=== PATIENT | female | born 1970 | race Caucasian/White ===

== ENCOUNTER 2022-08-13 10:43 | Emergency (ER) | payer BC, SELFPAY ==
[2022-08-13 10:50] VITALS: BP 154/94; PULSE 102; RESP 20; O2SAT 99; BMI 38.0
--- NOTE | 2022-08-13 11:05 | PC.NURSE ---
patient presents from home with L leg pain which she attributes to her sciatica pain. pt initially went to UC and was given prednisone with little relief. pt is aox3, VSS. no other complaints
--- OUTSIDE RECORDS SUMMARY | 2022-08-13 11:06 | XMS_ITS | Encounter Summary ---
:1970 Author Reason for Visit Leg Pain Left leg pain since last august, was pres cribed meds while here and took it and now comes back with another occurance of leg pain. Was prescribed prednisone last year and that helped Assessment and Plan 1. Low back pain co-occurrent with neur algia of left sciatic nerve ? prednisone 20 mg tablet Discussion Note Sciatica is an irritation of one of the sciatic nerves, which come from the spinal cord in the lower back. The sciatic nerves and their branches extend down through the buttock to the foot. Sciatica can develop when an injured disc in the robert k irritates or presses against a spinal nerve root. Its main symptom is pain, numbness, or weakness that is often worse in the leg or foot than in the back. Sciatica often will improve and go away with time. Early treatment usually includes medicines and exercises to relieve pain. How can you care for yourself at home? Take pain medicines exactly as directed. If the doctor gave you a prescription me dicine for pain, take it as prescribed. If you are not taking a prescription demian n medicine, ask your doctor if you can take an [id number] medicine. Use heat or ice to relieve pain. To apply heat, put a warm water bottle, heating pad set on low, or warm cloth on your back. Do not go to sleep with a heating pad on your skin. To use ice, put ice or a cold pack on th e area for 10 to 20 minutes at a time. Put a thin cloth between the ice and your skin. Avoid sitting if possible, unless it fee ls better than standing. Alternate lying down with short walks. I ncrease your walking distance as you are able to without making your symptoms worse. Do not do anything that makes your sympt oms worse. Patient educational handouts: No information available. Plan of Care Reminders Provider Appointments None recorded. ? ? Lab None recorded. ? ? Referral None recorded. ? ? Procedures None recorded. ? ? Surgeries None recorded. ? ? Imaging None recorded. ? ? Medications Name Start Date ? ? dextroamphetamine-amphetamine 20 mg tablet ? TAKE 1 TABLET BY MOUTH EVERY DAY NEEDED dextroamphetamine-amphetamine ER 20 mg 24hr capsule,ex tend release ? TAKE 2 CAPSULES BY MOUTH EVERY MORNING prednisone 20 mg tablet ? Take 2 tablets every day by oral route in the morning for 4 days. venlafaxine ER 150 mg capsule,extended release 24 hr ? TAKE 1 CAPSULE BY MOUTH TWICE A DAY Medications Administered None recorded. Vitals Height Weight BMI Blood Pressure 5 ft 9 in 249 lbs 16 oz 36.9 kg/m2 138/90 mm[Hg] Results Lab Results None recorded. Allergies Code Code System Name Reaction Severity Onset Tetanus and Diphtheria Toxoids Other ? ? Problems Name Status Onset Date Source ? Posttraumatic Stress Disorder Active 08/05/2022 ? Depressive Disorder Active 08/05/2022 ? Attention Deficit Hyperactivity Disorder Active 023 ? Procedures Date Name Performed by ? ? Cholecystectomy Information not avai lable Vaccine List None recorded. Social History Tobacco Smoking Status Never Smoker What is your level of alcohol consumption? None Do you or have you ever used any other forms of tobacco or n icotine? N Do you use any illicit or recreational drugs? N Have you had direct contact, or contact during intimacy, wit h N monkeypox rash, scabs, or body fluids from a person with mon keypox? Have you recently traveled abroad? N Family History Relation Problem Onset Age of Age Notes Father No current problems or (No Information) N/A ( No Notes) disability Mother No current problems or (No Information) N/A ( No Notes) disability Functional Status Unknown. Past Encounters Encounter Date Diagnosis Provider 08/05/2022 Low Back Pain Co-occurrent with Renzochari patel UPPER STITCHER: [address] [facility] Neuralgia of Left Sciatic Nerve [facility], [place] [address], Ph. History of Present Illness ? Lower Back Reported By: Patient HPI: Location: left, posterior. Q uality: aching, burning, constant. Severity: moderate. Duration: 2 days. Timing: acute, morning, daytime, nighttime. Context: cannot identify, rafa fting. Alleviating Factors: rest, NSAIDs. Aggravating Factors: walking , lifting, carrying, bending/squatting, pushing/pulling. Associated Symptoms: no weakness, no numbness, no swelling, no redness, no war mth, no ecchymosis, no catching/locking, no popping/clicking, no bucklin g, no grinding, no instability, no drainage, no fever, no chills, no weig ht loss, no change in bowel/bladder habits, tingling, radiation down leg ; anterior and posterior of left thigh and lower leg. Previous Surgery: none. Prior Imaging: none. Previous Injections: none. Previous P T: none. Work Related: no. Working: no Review of Systems ? [facility] General Adult ROS Reported By: Patient Constitutional: Constitutional: no fever, no night sweats, no significant weight loss, no chills Eyes: Eyes: no irritation, no visi on change ENMT: Ears: no difficulty hearing, no ear pain. Nose: no nose/sinus problems, NO loss of taste/s bal. Mouth/Throat: no sore throat, no mouth ulcers, no oral abnormalities, No hoarseness Cardiovascular: Cardiovascular: no chest demian n, no palpitations, no arm pain on exertion, no shortness of br eath when walking, no shortness of breath when lying down Respiratory: Respiratory: no cough, no wh eezing, no shortness of breath, no coughing up blood, no conges tion in the chest, Not coughing up sputum Gastrointestinal: Gastrointestinal: no abdomin al pain, normal appetite, no nausea, no vomiting, no diar mil, no constipation, not vomiting blood Genitourinary: Genitourinary: no difficulty urinating, no dysuria, no hematuria, no increased freq uency, no flank pain Musculoskeletal: Musculoskeletal: no muscle a ches, no muscle weakness, no arthralgias/joint pain, no s welling in the extremities, back pain Integumentary: Skin: no jaundice, no rashes , no laceration Neurologic: Neurologic: no loss of consc iousness, no weakness, no numbness, no seizures, no di zziness, no headaches Psychiatric: Psych: no depression, no sle ep disturbances, no alcohol abuse Endocrine: Endocrine: no fatigue Hematologic/Lymphatic: Hematologic/Lymphatic no swo llen glands, no bruising Allergic/Immunologic: Allergy/Immunologic: no itch ing, no hives, no frequent sneezing Physical Exam ? [facility] General Adult Exam Both, Brief Back Pain Exam Reported By: Patient Constitutional: General Appearance: healthy- appearing, well-nourished, well-developed Psychiatric: Insight: good judgement. Men faina Status: active and alert, normal mood, normal affect. Orientation: to time, to place, to person, to situation. Memory : recent memory normal, remote memory normal Head: Head: no abnormalities, atra umatic Eyes: Lids and Conjunctivae: non-i njected, no discharge, no pallor. Globe no globe trauma, no re dness. Pupils: PERRLA, brisk. Corneas: grossly intact. EOM : extraocular movement intact. Lens: clear. Sclerae: non-ic teric. Vision: peripheral vision grossly intact, acuity gross ly intact Neck: Neck: supple, non tender, tr achea midline, no step-offs, no crepitus, no nuchal rigidity , no pain with movement Lungs: Respiratory effort: no dyspn ea, nonlabored. Percussion: normal resonance, no dullness. Ausc ultation: breath sounds normal Cardiovascular System: Apical Impulse: not displace d. Heart Auscultation: regular rate and rhythm, normal S1, normal S2, no murmurs, no rubs, no gallops. Neck vessels: no ca rotid bruits. Peripheral pulses normal throughout Abdomen: Bowel Sounds: normoactive. I nspection and Palpation: soft, non-distended, no tenderness , no guarding, no rebound tenderness, no mass, no CVA tenderness. Liver: non-tender, no hepatomegaly. Spleen: non-te nder, no splenomegaly. Hernia: none palpable Musculoskeletal:: Motor Strength and Tone: nor mal motor strength, normal tone. Joints, Bones, and Muscles: normal movement of all extremities, no bony abnorma lities, no contractures, no malalignment, no tenderness. Extremities: no cyanosis, no edema, no varicosities, nega tive Doyle's sign Neurologic: Gait: normal gait. Cranial N erves: grossly intact, no facial droop, eyebrow raise symmetr ical. Sensation: grossly intact. Reflexes: normal. Coordinati on: [id number] intact, no tremor, auto painter equal, strengt h equal all extremities 5/5 Skin: Inspection and palpation: no rash, no lesions, no ulcer, no abnormal nevi, no induration , no nodules, good turgor, no jaundice. Nails: normal, no clubbing Back: Thoracolumbar Appearance: no rmal curvature Lumbar Spine: Inspection no skin abnormali ties. Soft Tissue Palpation on the Left: tenderness of the para spinal region at L 5. Soft Tissue Palpation on the Right: tend erness of the paraspinal region at L 5. Active Range of Motion: flexion limited, extension limited, lateral flexion galarza ited on left, lateral flexion limited on right, pain with motion, pain with rotation
[2022-08-13 11:50] LABS: Appearance Urine Cloudy; Color Urine Yellow; Glucose Urine UA Negative (Negative); Leukocyte Esterase Urine Small (1+) (Negative); Nitrite Urine Negative (Negative); Specific Gravity - Urine 1.025 (1.005-1.025); UMIC TRIGGER UACC YES; Urine Blood Negative (Negative); Urine Ketones Negative (Negative); Urine Protein Trace mg/dL (Neg-Trace)
[2022-08-13 11:56] LABS: UPreg QC Valid YES; Urine Pregnancy NEGATIVE (NEGATIVE)
[2022-08-13] MEDS: Acetaminophen 325 MG TABLET 975 MG PO (12:01)
[2022-08-13] MEDS: Lidocaine 4 % Patch ADH..PATCH 1 PATCH TRANSDERMA (12:01)
[2022-08-13] MEDS: Ketorolac Tromethamine 15 MG/ML VIAL IM (12:01)
[2022-08-13 12:02] LABS: Bacteria Urine 3+ (None Seen); Hyaline Casts Urine 0-2 /LPF (0-2); RBC Urine 0-2 /HPF (0-2); UACC Culture Trigger YES
--- NOTE | 2022-08-13 12:21 | ED.BACK ---
HPI - Back Pain/Injury General Chief Complaint: Extremity Injury, Lower Stated Complaint: L side pain Time Seen by Provider: 08/13/22 11:13 Source: patient Mode of arrival: ambulatory History of Present Illness HPI Narrative: 51-year-old female who presents with ongoing left back pain that wraps around to her left anterior thigh, she denies any fevers or chills, she denies any bowel or bladder dysfunction but states that the pain does make it difficult for her to walk. She denies any mid buttock pain and denies any pain radiating down the back of her leg. She was recently given a short course of prednisone but states that really did not help. Related Data Previous Rx's Medication Instructions Recorded cyclobenzaprine 5 mg tablet 5 mg PO BEDTIME PRN muscle spasm 08/13/22 #4 tabs ketorolac 10 mg tablet 10 mg PO Q6H PRN pain 5 days #20 08/13/22 tabs Allergies Allergy/AdvReac Type Severity Reaction Status Date / Time tetanus toxoid, adsorbed Allergy Intermediate FEVER Verified 08/13/22 10:53 [TETANUS TOXOID, ADSORBED] Tetanus Allergy Unknown Unknown Uncoded 08/13/22 10:53 Review of Systems Review of Systems: Pertinent positives and negatives as stated in HPI [facility] Past Medical History Source: nursing notes reviewed Social History Social History Advance Directives: No Advance Directives Information Provided: No Physical Exam Vital Signs: Vital Signs: Last Vital Signs Pulse 102 H 08/13/22 10:50 Resp 20 08/13/22 10:50 BP 154/94 H 08/13/22 10:50 Pulse Ox 99 08/13/22 10:50 O2 Del Method 08/13/22 10:50 BMI result Body Mass Index 38.0 VITAL SIGNS: Reviewed. GENERAL: Well developed, well nourished, in no acute distress. HEAD: Normocephalic/atraumatic, EYES: PERRLA, EOMI LUNGS: Normal breath sounds. No adventitious sounds or accessory muscle use. SpO2<99> CARDIOVASCULAR: Regular rate and rhythm without noted murmurs ABDOMEN: Soft, non-tender, non-distended with bowel sounds. BACK: no mid vertebral tenderness or step-offs noted, there is tenderness to palpation at the paraspinal approximate L4/L5 and associated muscle spasm. MUSCULOSKELETAL: No tenderness, deformities, or effusions noted on gross inspection. EXTREMITIES: No cyanosis, clubbing or edema. SKIN: Inspection of the skin reveals no rashes NEUROLOGIC: Alert and oriented x 4. Strength and sensation to light touch were grossly intact x 4, DTRs intact. Medications Administered Discontinued Medications Generic Name Dose Route Start Last Admin Trade Name Garoq PRN Reason Stop Dose Admin Acetaminophen 975 mg 08/13/22 11:48 08/13/22 12:01 Acetaminophen 325 Mg Tablet PO 08/13/22 11:49 975 mg ONCE ONE Administration Ketorolac Tromethamine 15 mg 08/13/22 11:48 08/13/22 12:01 Ketorolac Tromethamine 15 Mg/Ml Vial IM 08/13/22 11:49 15 mg ONCE ONE Administration Lidocaine 1 patch 08/13/22 11:48 08/13/22 12:01 Lidocaine 4 % Patch Adh..Patch TRANSDERMA 08/13/22 11:49 1 patch ONCE ONE Administration Protocol Medical Decision Making Medical Decision Making MDM Narrative: 51-year-old female with history and clinical presentation of atraumatic lumbar radiculopathy without concerns for infection or cauda equina. Pain distribution is inconsistent with sciatica, discussed with patient at bedside the difference and will give her combination analgesics as well as a lidocaine patch. I will re-evaluate and likely discharge patient on continuing course of ketorolac and cyclobenzaprine in addition to Tylenol and lidocaine patch. I did review the urinalysis which demonstrates wbc's, bacteria as well as leukocyte esterase, however it appears to be a dirty sample with 11-20 squamous epithelial cells , so will not treat at this time. on re-evaluation patient is feeling better and she will be discharged home in stable condition. Differential Diagnosis Please see the discussion above Lab Data please see the discussion above Labs: Lab Results 08/13/22 08/13/22 Range/Units 11:41 11:41 Urine Color Yellow Urine Appearance Cloudy Urine pH 6.0 (5.0-9.0) Ur Specific Bigler 1.025 (1.005-1.025) Urine Protein Trace (Neg-Trace) mg/dL Urine Glucose (UA) Negative (Negative) mg/dL Urine Ketones Negative (Negative) mg/dL Urine Blood Negative (Negative) Urine Nitrite Negative (Negative) Ur Leukocyte Esterase Small (1+) H (Negative) Urine RBC 0-2 (0-2) /HPF Urine WBC 6-10 H (0-5) /HPF Ur Squamous Epith Cells 11-20 (0-2) /HPF Urine Bacteria 3+ (None Seen) Hyaline Casts 0-2 (0-2) /LPF Urine Test NEGATIVE (NEGATIVE) Discharge Plan Discharge Clinical Impression: Left lumbar radiculopathy, Muscle spasm Patient Disposition: Home, Self-Care Instructions: Lumbar Radiculopathy (ED), Muscle Spasm (ED), Lower Back Exercises (ED) Additional Instructions: 1. Tylenol 1000 mg, orally, every 6 hours as needed for pain control. Do not exceed 4000 mg within 24 hours. 2. Lidocaine patch, apply to your lower back, not your leg as directed on the outside packaging. 3. Please contact your primary care provider once again and request physical therapy referral. Return to the ER for any worsening symptoms. Prescriptions: New cyclobenzaprine 5 mg tablet 5 mg PO BEDTIME PRN (Reason: muscle spasm) Qty: 4 0RF ketorolac 10 mg tablet 10 mg PO Q6H PRN (Reason: pain) 5 Days Qty: 20 0RF Rx Instructions: patient received Toradol in the emergency room. Referrals: Kesha Gunter FNP [Primary Care Provider] -
--- NOTE | 2022-08-13 12:56 | PC.NURSE ---
pt reporting reduction in pain, 5/10.
== END 2022-08-13 13:05 | disposition home or self-care (01) ==
PROVIDERS: Emergency Provider Student in an Organized Health Care Education/Training Program; PCP Nurse Practitioner Family
DX: M54.16 Radiculopathy, lumbar region (principal); M62.838 Other muscle spasm; Z79.899 Other long term (current) drug therapy
CPT/HCPCS: 81001; 81025; 87086; 96372; 99283; 99284; J1885

== ENCOUNTER 2022-12-02 08:12 | Outpatient (REF) | payer BC, SELFPAY | END 2022-12-02 08:13 | disposition home or self-care (01) | LOC: HO.LAB 08:12 | PROVIDERS: PCP Nurse Practitioner Family; Visit Provider Nurse Practitioner Family | DX: Z13.220 Encounter for screening for lipoid disorders (principal); Z13.1 Encounter for screening for diabetes mellitus; Z83.3 Family history of diabetes mellitus; Z13.0 Encounter for screening for diseases of the blood and blood-forming organs and certain disorders involving the immune mechanism; Z13.29 Encounter for screening for other suspected endocrine disorder; Z20.2 Contact with and (suspected) exposure to infections with a predominantly sexual mode of transmission | CPT/HCPCS: 36415; 80053; 80061; 83036; 84443; 85025 ==

== ENCOUNTER 2024-06-26 13:37 | Outpatient (AMB) | payer BC, SELFPAY ==
--- NOTE | 2024-06-26 13:41 | A.OFFPC_ITS ---
Vital Signs 06/26/24 13:43 Height 5 ft 8 in Weight 225 lb 4 oz BMI 34.2 BP 120/78 Blood Pressure Location Lt brachial Position Sitting Pulse 80 Pulse Source Pulse Oximeter Temp 97.3 F Temp Source Skin Pulse Oximetry (%) 99 Oxygen Delivery Method Room Air Intake Visit Reasons: AGUILA Kesha/ establish care Intake Note: Patient is here today for AGUILA from A.O. Complaint of possible menopause. Pt decline flu shot today. Research Quality Assurance Specialist Required: No Surveillance Operator: Not Required per policy Accompanied by: Self / Same As Patient Allergies tetanus toxoid, adsorbed [TETANUS TOXOID, ADSORBED] Allergy (Intermediate, Verified 06/26/24 14:23) FEVER Tetanus Allergy (Unknown, Uncoded 06/26/24 14:23) Unknown Medication List - Last Reconciled 06/26/24 by Michelle Mi PA-C dextroamphetamine-amphetamine 20 mg 1 tab PO DAILY PRN venlafaxine ER 300 mg PO DAILY Tobacco use date assessed: 06/26/24 Dental Screening Dental Screen Date: 06/26/24 Did you have a dental visit in the last 12 months?: Yes Did you have a dental problem in the last 6 months where you did not have access to dental care?: No Was dental information given to patient?: Patient has dentist HPI AGUILA Kesha/ establish care HPI Details 53-year-old female with past medical his tory of depression, anxiety, PTSD, hyperlipidemia last seen by nurse practitioner 09/2022 coming in for transfer of care. Patient tells us today last year she was having spotting for the entire year without a normal menstrual cycle. Four weeks ago she began having cramps and vaginal bleeding consistent with her normal menses. She continues to have this vaginal cramping and bleeding without interruption. She sees Estefany Parekh as her psych provider and she will see her every 3-4 months. She is also interested in the Wegovy injection for weight loss. [facility] Surgical History (Updated 06/26/24 @ 14:25 by Michelle Mi PA-C) H/O tubal ligation History of cholecystectomy Family History (Updated 06/26/24 @ 13:47 by MARCOS Dennis) Mother Diabetes Other Mental health disorder Social History Household Members: Spouse Housing: House Alcohol intake: never Patient Tobacco Use Status: Never used Tobacco Years Smoked: e-Cigarette/Vaping Use: Never Used Second Hand Smoke Exposure: No Substance Use Type: Marijuana service: No Current occupational status: employed Cognitive needs: No Hearing needs: No Vision needs: No Questionnaire PHQ-9 Over the last 2 weeks, how often have you been bothered by any of the following problems? 1. Little interest or pleasure in doing things: not at all 2. Feeling down, depressed, or hopeless: more than half the days (Currently on medication) 3. Trouble falling or staying asleep, or sleeping too much: not at all 4. Feeling tired or having little energy: not at all 5. Poor appetite or overeating: not at all 6. Feeling bad about yourself - or that you are a failure or have let yourself or your family down: not at all 7. Trouble concentrating on things, such as reading the newspaper or watching television: not at all 8. Moving or speaking so slowly that other people could have noticed. Or the opposite - being so fidgety or restless that you have been moving around a lot more than usual: not at all 9. Thoughts that you would be better off or of hurting yourself in some way: not at all Total score: 2 Depression Screening Interpretation: Negative Depression Screening Done: Yes Source: Developed by Drs. Abhi Marshall, Xiomara Perry, Damien Orourke and colleagues, with an educational tess from [employer]. Thrive Questionnaire Date Thrive assessed: 06/26/24 I am a: Patient What is your living situation today?: I have a steady place to live Within the past 12 months, did the food you bought not last and you didn't have the money to get more?: Never true Within the past 12 months, did you worry whether your food would run out before you got money to buy more?: Never true Do you have trouble paying for medicines?: No Do you have trouble getting transportation to medical appointments?: No Do you have trouble paying your heating and electricity bill?: No Do you have trouble taking care of your child, family member or friend?: No Do you have trouble with day-to-day activities such as bathing, preparing meals, shopping, managing finances, etc.?: No Are you currently unemployed and looking for a job?: No Are you interested in more education?: No Please select the resources that you would like help with: None Currently or been in a relationship where the following occur: No concerns reported THRIVE Score: 0 AUDIT C Alcohol Use Questionnaire (AUDIT-C) 1. How often do you have a drink containing alcohol?: Monthly or less 2. How many drinks containing alcohol do you have on a typical day when you are drinking?: 1 or 2 3. How often do you have six or more drinks on one occasion?: Never Total Score: 1 NOEL-7 AMB Questionnaire NOEL-7 Date NOEL - 7 assessed: 06/26/24 Feeling nervous, anxious, or on edge: 2 = More than half the days (currently on medication) Not being able to stop or control worryin = Not at all Worrying too much about different things: 0 = Not at all Trouble relaxin = Not at all Being so restless that it is hard to sit still: 0 = Not at all Becoming easily annoyed or irritable: 0 = Not at all Feeling afraid as if something awful might happen: 0 = Not at all Total NOEL-7 score (0-4 normal; 5-9 mild; 10-14 moderate; 15-21 severe): 2 Source: Developed by Drs. Abhi Marshall, Xiomara Perry, Damien Orourke and colleagues, with an educational tess from [employer]. Review of Systems Const Denies body aches, Denies chills, Denies fever(s), Denies headache(s) and Denies poor appetite Eyes Reports no additional complaints ENT Denies dizziness and Denies headache(s) Card Denies chest pain, Denies syncope, Denies edema, Denies irregular heart rhythm, Denies lightheadedness and Denies dyspnea Resp Denies cough and Denies dyspnea GI Denies abdominal pain, Denies constipation, Denies diarrhea, Denies nausea and Denies vomiting Reports as per HPI Musc Details: Left knee pain and low back pain Denies abnormal gait Skin/Breast Reports system reviewed and no additional complaints, except as documented Neuro Denies abnormal gait, Denies dizziness, Denies syncope and Denies headache(s) Psych Reports no additional complaints Physical exam (Primary Care) Vital Signs: Last Vital Signs Temp 97.3 F 06/26/24 13:43 Pulse 80 06/26/24 13:43 BP 120/78 06/26/24 13:43 Pulse Ox 99 06/26/24 13:43 Oxygen Delivery Method Room Air 06/26/24 13:43 BMI result Body Mass Index 34.2 Tobacco/Smoking Status: Tobacco use Status Tobacco use date assessed 06/26/24 06/26/24 13:49 Patient Tobacco Use Status Never used Tobacco 06/26/24 13:49 e-Cigarette/Vaping Use Never Used 06/26/24 13:49 PHQ-9: PHQ-9 Score PHQ-9: Total score 2 06/26/24 13:49 Depression Screening Interpretation: Negative Thrive Assessment: Date of Thrive Assessment Date Thrive assessed 06/26/24 06/26/24 13:49 Currently or been in a relationship where the following occur: No concerns reported Const General: cooperative, healthy appearing, comfortable and no acute distress Orientation/consciousness: patient oriented x3 HENMT Head: Yes normocephalic Ears: hearing grossly normal bilaterally General nose exam: Normal external nose present Eyes General: appearance normal, both eyes and all related structures Conjunctivae: conjunctivae normal Neck Neck: Yes full ROM and Yes no lymphadenopathy Resp Effort & Inspection: normal respiratory effort Auscultation: clear to auscultation bilaterally, no crackles, no rales, no rhonchi and no wheezes Cardio Rate: regular rate Rhythm: regular rhythm Skin General skin exam: no rashes or lesions noted Neuro General: patient oriented x3 Gait exam (Neuro): Normal gait present Extrem General: Yes normal to inspection, Yes full ROM and No edema Psych Affect: normal affect Attitude: cooperative Insight: Good insight present (Psych) Judgement: Good judgement present (Psych) Coding Level of Care Code Est Pt Level 4 (55508) Diagnoses Hyperlipidemia E78.5 Anxiety F41.9 Depression F32.A PTSD (post-traumatic stress disorder) F43.10 ADHD F90.9 Heavy menstrual bleeding N92.0 Obesity E66.9 Assessment & Plan Assessment & Plan (1) Hyperlipidemia: Code(s): E78.5 - Hyperlipidemia, unspecified Category: Medical Plan: Avoid foods that are high in cholesterol such as red meat, fried foods, eggs and baked goods. Triglyceride goal of less than 150 and LDL goal of less than 130. Ordered for updated blood work (2) Anxiety: Comment: Follows with Estefany Parekh Q 3-4 months Code(s): F41.9 - Anxiety disorder, unspecified Category: Medical Plan: Follows with a psychiatrist and currently on venlafaxine feels her symptoms are well managed at this time. (3) Depression: Comment: Follows with Estefany Parekh Q 3-4 months Code(s): F32.A - Depression, unspecified Category: Medical Plan: Follows with a psychiatrist and currently on venlafaxine feels her symptoms are well managed at this time. (4) PTSD (post-traumatic stress disorder): Code(s): F43.10 - Post-traumatic stress disorder, unspecified Category: Medical Plan: Follows with a psychiatrist for this concern. (5) ADHD: Code(s): F90.9 - Attention-deficit hyperactivity disorder, unspecified type Category: Medical Plan: Follows with a psychiatrist and is currently on Adderall for this concern and feels her symptoms are well managed at this time. (6) Heavy menstrual bleeding: Code(s): N92.0 - Excessive and frequent menstruation with regular cycle Category: Medical Plan: Patient complaining of 4 weeks of heavy menses. She has not had this in the past but does have a history of irregular menses with spotting last year. Patient has not officially in menopause but does have menopausal symptoms such as hot flashes and mood swings. Referral placed to gynecology for further evaluation. (7) Obesity: Code(s): E66.9 - Obesity, unspecified Category: Medical Plan: Healthy diet and regular exercise is encouraged. Patient is interested in the Wegovy injection however after reviewing side effects of this medication patient would like to hold off on trying this medication until her symptoms the menstrual bleeding have resolved. Plan Ordered for updated blood work and we will have patient follow up in 1 month. This note was constructed using voice recognition software. While every effort has been made to ensure accuracy and conference services coordinator, still areas may have been included sometimes these areas may affect the content or meeting of the given symptoms. Total time spent caring for the patient today was 30 minutes. This includes time spent before the visit reviewing the chart, time spent during the visit, and time spent after the visit and documentation. Orders: Orders Comprehensive Met. Panel Today Z00.00 - Encounter for general adult medical examination without abnormal findings TSH reflex Free T4 Today Z00.00 - Encounter for general adult medical examination without abnormal findings IRON PROFILE Today N92.0 - Excessive and frequent menstruation with regular cycle Lipid Panel Today E78.00 - Pure hypercholesterolemia, unspecified MM tomosynthesis screening BI Today Z12.31 - Encounter for screening mammogram for malignant neoplasm of breast Complete Blood Count Auto Diff Today Z00.00 - Encounter for general adult medical examination without abnormal findings Free T4 (Free Thyroxine) Today Z00.00 - Encounter for general adult medical examination without abnormal findings Vitamin B12 and Folate Today Z00.00 - Encounter for general adult medical examination without abnormal findings Vitamin D 25-OH Total Today Z00.00 - Encounter for general adult medical examination without abnormal findings Hemoglobin A1c Today E78.5 - Hyperlipidemia, unspecified UA CC w/rflx Micro + Cult Today R35.89 - Other polyuria Referrals DYE RANGE OPERATOR CLOTH Referral N92.0 - Excessive and frequent menstruation with regular cycle
[2024-06-26 13:43] VITALS: BP 120/78; PULSE 80; TEMP 36.3; O2SAT 99; BMI 34.2
== END 2024-06-26 14:55 | disposition home or self-care (01) ==
PROVIDERS: PCP Nurse Practitioner Family
DX: E78.5 Hyperlipidemia, unspecified (principal); F41.9 Anxiety disorder, unspecified; E66.9 Obesity, unspecified; Z68.34 Body mass index [BMI] 34.0-34.9, adult; F32.A Depression, unspecified; F43.10 Post-traumatic stress disorder, unspecified; F90.9 Attention-deficit hyperactivity disorder, unspecified type; N92.0 Excessive and frequent menstruation with regular cycle

== ENCOUNTER 2024-08-11 11:07 | Outpatient (REF) | payer BC, SELFPAY ==
[2024-08-11 11:24] LABS: MANUAL DIFF FLAG NO
[2024-08-11 11:41] LABS: Basophils Absolute Auto 0.1 X10*3/uL (0.0-0.2); Basophils Percent Auto 0.5 % (0-2); Eosinophils Absolute Auto 0.2 X10*3/uL (0.0-0.4); Eosinophils Percent Auto 1.5 % (0-4); Hematocrit 40.5 % (37.0-47.0); Hemoglobin 13.2 g/dl (12.0-16.0); Imm Gran Abs Auto 0.05 X10*3/uL (0.00-0.03); Imm Gran Pct Auto 0.4 % (0.0-0.4); Lymphocytes Absolute Auto 4.1 X10*3/uL (1.2-4.9); Lymphocytes Percent Auto 30.1 % (20-40); Mean Corpuscular HGB Conc 32.6 g/dl (31.0-35.0); Mean Corpuscular Volume 79.9 fL (80.0-98.0); Mean Platelet Volume 9.4 fL (9.4-12.3); Monocytes Absolute Auto 0.7 X10*3/uL (0.1-1.2); Monocytes Percent Auto 5.4 % (2-11); Neutrophils Absolute Auto 8.5 x10*3/uL (2.0-8.3); Neutrophils Percent Auto 62.1 % (45-73); Platelet Count 430 X10*3/uL (160-400); Red Blood Count 5.07 X10*6/uL (4.20-5.50); Red Cell Distribution Width 14.1 % (11.0-16.0); White Blood Count 13.7 X10*3/uL (4.8-10.8)
[2024-08-11 11:53] LABS: Estimated Average Glucose 105 mg/dL; Hemoglobin A1c % 5.3 % (<6.0)
[2024-08-11 12:14] LABS: Appearance Urine Cloudy; Color Urine Yellow; Glucose Urine UA Negative (Negative); Leukocyte Esterase Urine Negative (Negative); Nitrite Urine Negative (Negative); PH 5.5 (5.0-9.0); Specific Gravity - Urine >= 1.030 (1.005-1.025); Urine Blood Negative (Negative); Urine Ketones Negative (Negative); Urine Protein Negative (Neg-Trace)
--- OUTSIDE RECORDS SUMMARY | 2024-08-11 12:40 | XMS_ITS | Data Portability ---
Author Organization [facility] [address] Address [address] [place] [address] Assessment No assessment recorded. Plan of Treatment Reminders Order Date Submit Date Provider Last Modified By Organization Details Last Modified Time Details Appointments None recorded. Lab None recorded. Referral None recorded. Procedures None recorded. Surgeries None recorded. Imaging None recorded. Medication Orders prednisone 20 mg tablet 2022 023 [facility] #[id number], [address] [place], [address], 12:21:04 Patient TargetsNo targets recorded. Patient Instructions Encounter Date Encounter Id Patient Instructions Last Modified By Organization Details Last Modified Time 08/05/2022 [id number] Sciatica is an irritation of one of the sciatic nerves, which come from the spinal cord in the lower back. The sciatic nerves and their branches extend down through the buttock to the foot. Sciatica can develop when an injured disc in the back irritates or presses against a spinal nerve [...] If the doctor gave you a prescription medicine for pain, take it as prescribed. If you are not taking a prescription pain medicine, ask your doctor if you can take an zyhb-sxl-deocexh medicine. Use heat or ice to relieve pain. To apply heat, put a warm water bottle, heating pad set on low, or warm cloth on your back. Do not go to sleep with a heating pad on your skin. To use ice, put ice or a cold pack on the area for 10 to 20 minutes at a time. Put a thin cloth between the ice and your skin. Avoid sitting if possible, unless it feels better than standing. Alternate lying down with short walks. Increase your walking distance as you are able to without making your symptoms worse. Do not do anything that makes your symptoms worse. [email or web address] Not available 08/05/2022 12:20:48 Reason for Referral None Reported. Problems Name Problem SNOMED Code Status Onset Date Resolution Date Notes Provider Name and Address Organization Details Recorded Time Attention deficit hyperactivity disorder 562583001 Active 2022 Yessica Chele null, PA - [facility] 11:17:38 Depressive disorder 50919536 Active 2022 Yessica Chele null, PA - [facility] 11:17:52 Posttraumatic stress disorder 16177132 Active 2022 Yessica Chele null, PA - [facility] 11:17:56 Problem Notes None recorded. Procedures Surgical History Date Name Laterality Status Provider Name and Address Organization Details Recorded Time cholecystectomy completed Yessica Chele P A - [facility] 08/05/2022 11:18:14 Imaging Results None recorded. Procedure Notes None recorded. Medical Equipment None Reported. Allergies Allergen ID Allergen Name Allergen Category Reaction Reaction Severity Criticality Documentation Date Start Date Code Code System Note Provider Name and Address Organization Details Recorded Time 504800 tetanus and diphtheri a toxoids Not available other Not available low 08/05/2022 59190 UNK Yessica Quebradillas null, PA - [facility] 11:16:49 Medications Name Sig Start Date Stop Date Status Note LastModified by Organization Details LastModified Time prednisone 20 mg tablet Take 2 tablets every day by oral route in the morning for 4 days. 2022 active Not Available Not Available Not Avai lable venlafaxine ER 150 mg capsule,exten ded release 24 hr TAKE 1 CAPSULE BY MOUTH TWICE A DAY active Not Available Not Available No t Available dextroampheta mine-amphetam ine ER 20 mg 24hr capsule,exten d release TAKE 2 CAPSULES BY MOUTH EVERY MORNING active Not Available Not Available No t Available dextroampheta mine-amphetam ine 20 mg tablet TAKE 1 TABLET BY MOUTH EVERY DAY NEEDED active Not Available Not Available No t Available Vitals Date Recorded Body height Body mass index (BMI) Body weight Pain severity - 0-10 verbal numeric rating [Score] - Reported Body temperature Respiratory rate Heart rate Oxygen saturation Oxygen saturation in Arterial blood by Pulse oximetry Systolic blood pressure Diastolic blood pressure Provider Name and Address Organization Details Last Updated DateTime 175.26 cm 36.9 kg/m2 847856. 09 g 9 98.2 [degF] 20 /min 92 /min 96 % 96 % 138 mm[Hg] 90 mm[Hg] Yessica Elaine PA [facility] 11:19:55 Social History Question Answer Notes LastModified by Organizat ion Details LastModified Time Tobacco Smoking Status Never Smoker Yessica sheppard PA - [facility] 08/05/2022 11:18:05 What Is Your Level Of Alcohol Consumption? None Information not available 08/05/2022 Have You Had Direct Contact, Or Contact During Intimacy, With Monkeypox Rash, Scabs, Or Body Fluids From A Person With Monkeypox? No Information not available 08/05/2022 Do You Use Any Illicit Or Recreational Drugs? No Information not available 08/05/2022 Have You Recently Traveled Abroad? No Information not available 08/05/2022 Do You Or Have You Ever Used Any Other Forms Of Tobacco Or Nicotine? No Information not available 08/05/2022 Sex: Unknown Functional Status None recorded. Mental Status None recorded. Family History Relationship Description Onset Age of this Age Resolved Age Notes LastModified by Organization Details LastModified Time Father No current problems or disability Not available 08/05 11:17:58 Mother No current problems or disability Not available 08/05 11:17:58 Medical History No medical history recorded. Gynecological HistoryNo gynecological history recorded. Obstetrics History GPAL:G 0 P 0 0 0 0 Past Encounters Encounter ID Performer Location Encounter Start Date Encounter Closed Date Diagnosis/Indication Diagnosis SNOMED-CT Code Diagnosis ICD10 Code Diagnosis Note [id number] [address] [address] 08/09/2020 10:55:55 08/09/2020 12:39:57 [id number] [address] [facility] [place] [address] 12/30/2018 14:16:40 12/30/2018 14:59:09 [id number] [address] [facility] [place] [address] 02/07/2017 18:08:33 02/07/2017 18:41:29 [id number] [address] [facility] [place] [address] 07/31/2015 14:18:05 07/31/2015 14:56:05 [id number] Renzo Cordero NP [address] [facility] [place] [address] 08/05/2022 10:52:54 08/05/2022 12:22:36 Low back pain co-occurrent with neuralgia of left sciatic nerve [id number] M54.42 Health Concerns Section Related Observation LastModified by Organization Detai ls LastModified Time None Recorded Concern Status LastModified by Organization Details LastModified Time None Recorded Advance Directives Directive None Recorded Payers Encounter Date Sequence Insurance Name Policy Number Policy Macedo Covered Member ID Macedo Member ID Guarantor Name 07/31/2015 1 [place] [id number] Hitesh [place] [id number] Trang [place] 02/07/2017 1 [place] [id number] Hitesh [place] [id number] Trang [place] 12/30/2018 1 [place] [id number] Hitesh [place] [id number] Trang [place] 08/09/2020 1 [place] [id number] Hitesh Scooby [id number] Trang [place] 08/05/2022 1 [place] [id number] Hitesh Almod[place]ar [id number] Trang Almod[place]ar Notes Date Note Type Note Provider Name and Address Organization Details Recorded Time 08/05/2022 text/html Lower BackReport ed bypatient.Location :left; posterior Quality:aching; burning; constant Severity:moderate Duration:2 days Timing:acute; morning; daytime; nighttime Context:cannot identify; lifting Alleviating Factors:rest; NSAIDs Aggravating Factors:walking; lifting; carrying; bending/squatting; pushing/pulling Associated Symptoms:no weakness; no numbness; no swelling; no redness; no warmth; no ecchymosis; no catching/locking; no popping/clicking; no buckling; no grinding; no instability; no drainage; no fever; no chills; no weight loss; no change in bowel/bladder habits;tingling;ra diation down leg; anterior and posterior of left thigh and lower leg. Previous Surgery:none Prior Imaging:none Previous Injections:none Previous PT:none Work Related:no Working:no Renzo Cordero NP [address] [place], [address], PA - [facility] 08/06/2022 07:46:38 OBGyn Episode No OBEpisode recorded.
[2024-08-11 12:58] LABS: Alanine Aminotransferase 12 U/L (0-31); Albumin Level 4.2 g/dL (3.5-5.0); Alkaline Phosphatase 85 U/L (39-117); Anion Gap 12 (12-20); Aspartate Amino Transferase 14 U/L (5-31); Bilirubin Total 0.3 mg/dL (0.0-1.0); Blood Urea Nitrogen 21 mg/dL (9-16); Calcium 9.3 mg/dL (8.4-10.2); Carbon Dioxide 29 mmol/L (22-29); Chloride 106 mmol/L (96-108); Cholesterol 317 mg/dL (<200); Estimated Glomerular Filt Rate > 60; Glucose Random 76 mg/dL (60-115); HDL Cholesterol 49 mg/dL (>40); Iron 39 mcg/dL (30-160); LDL Cholesterol Calculated 239 mg/dL (<100); Percent Iron Saturation 16 % (15-50); Potassium 3.3 mmol/L (3.3-5.1); Sodium 144 mmol/L (135-145); Total Iron Binding Capacity 242 mcg/dL (228-428); Total Protein 8.2 g/dL (6.5-8.0); Triglycerides 149 mg/dL (<150); Unsaturated Iron Binding 203 ug/dL
[2024-08-11 13:00] LABS: TSH reflex Free T4 1.37 uIU/mL (0.32-4.0)
[2024-08-11 13:10] LABS: Folate 5.6 ng/mL (> or = 4.0); Vitamin B12 417 pg/mL (200-900)
== END 2024-08-11 11:08 | disposition home or self-care (01) ==
LOC: HO.LAB 11:07
DX: Z00.00 Encounter for general adult medical examination without abnormal findings (principal); N92.0 Excessive and frequent menstruation with regular cycle; E78.00 Pure hypercholesterolemia, unspecified; E78.5 Hyperlipidemia, unspecified; R35.89 Other polyuria; Z13.1 Encounter for screening for diabetes mellitus
CPT/HCPCS: 36415; 80053; 80061; 81003; 82306; 82607; 82746; 83036; 83540; 84439; 84443; 85025

== ENCOUNTER 2024-08-26 08:29 | Outpatient (AMB) | payer BC, SELFPAY ==
--- NOTE | 2024-08-26 08:36 | MHC.PC.OV ---
Vital Signs 08/26/24 08:38 Height 5 ft 8 in Weight 227 lb BMI 34.5 BP 130/76 Blood Pressure Location Lt brachial Position Sitting Pulse 71 Pulse Source Pulse Oximeter Temp 97.3 F Temp Source Temporal Artery Scan Pulse Oximetry (%) 96 Oxygen Delivery Method Room Air Intake Visit Reasons: f/u menses Intake Note: Patient is here to follow up on menses. [employer] Required: No Carport Erector: Not Required per policy Accompanied by: Self / Same As Patient Allergies tetanus toxoid, adsorbed [TETANUS TOXOID, ADSORBED] Allergy (Intermediate, Verified 08/26/24 08:39) FEVER Tetanus Allergy (Unknown, Uncoded 08/26/24 08:39) Unknown Medication List - Last Reconciled 08/26/24 by Michelle Mi PA-C dextroamphetamine-amphetamine 20 mg 1 tab PO DAILY PRN venlafaxine ER 300 mg PO DAILY Tobacco use date assessed: 08/26/24 Dental Screening Dental Screen Date: 06/26/24 HPI f/u menses HPI Details 53-year-old female with past medical history of depression, anxiety, PTSD, hyperlipidemia last seen 06/2024 coming in for follow up. Presenting with concerns regarding a recent diagnosis of endometrial cancer and elevated cholesterol levels. Following a dilation and curettage (D&C) procedure, endometrial cancer was confirmed. There was persistent vaginal bleeding, currently diminished but persisting, addressed partially by Mirena IUD use. The patient is scheduled to undergo a scan to evaluate potential cancer metastasis to the chest and abdomen areas. Triglyceride levels were at 149 mg/dL. The patient's 2022 cholesterol reading was elevated at 189 mg/dL and further increased to 239 mg/dL, with a low calculated cardiovascular risk. She has follow up visit on with forestry scientist. [facility] Surgical History H/O tubal ligation History of cholecystectomy Family History Mother Diabetes Other Mental health disorder Social History Household Members: Spouse Housing: House Alcohol intake: never Patient Tobacco Use Status: Never used Tobacco Years Smoked: e-Cigarette/Vaping Use: Never Used Second Hand Smoke Exposure: No Substance Use Type: Marijuana service: No Current occupational status: employed Cognitive needs: No Hearing needs: No Vision needs: No Questionnaire Thrive Questionnaire Date Thrive assessed: 06/26/24 NOEL-7 AMB Questionnaire NOEL-7 Date NOEL - 7 assessed: 06/26/24 Source: Developed by Drs. Abhi Marshall, Xiomara Perry, Damien Orourke and colleagues, with an educational tess from [employer]. Review of Systems Const Denies body aches, Denies chills, Denies fever(s), Denies headache(s) and Denies poor appetite Eyes Reports no additional complaints ENT Denies dizziness and Denies headache(s) Card Denies chest pain, Denies lightheadedness and Denies dyspnea Resp Denies dyspnea GI Reports no additional complaints Details: Vaginal bleeding Musc Reports no additional complaints and Denies abnormal gait Skin/Breast Reports system reviewed and no additional complaints, except as documented Neuro Denies abnormal gait, Denies dizziness and Denies headache(s) Psych Reports no additional complaints Physical exam (Primary Care) Vital Signs: Last Vital Signs Temp 97.3 F 08/26/24 08:38 Pulse 71 08/26/24 08:38 BP 130/76 08/26/24 08:38 Pulse Ox 96 08/26/24 08:38 Oxygen Delivery Method Room Air 08/26/24 08:38 BMI result Body Mass Index 34.5 Tobacco/Smoking Status: Tobacco use Status Tobacco use date assessed 08/26/24 08/26/24 08:39 Patient Tobacco Use Status Never used Tobacco 08/26/24 08:39 e-Cigarette/Vaping Use Never Used 08/26/24 08:39 Thrive Assessment: Date of Thrive Assessment Date Thrive assessed 06/26/24 08/26/24 08:39 Const General: cooperative, healthy appearing, comfortable and no acute distress Orientation/consciousness: patient oriented x3 HENMT Head: Yes normocephalic Ears: hearing grossly normal bilaterally General nose exam: Normal external nose present Eyes General: appearance normal, both eyes and all related structures Conjunctivae: conjunctivae normal Neck Neck: Yes full ROM and Yes no lymphadenopathy Resp Effort & Inspection: normal respiratory effort Auscultation: clear to auscultation bilaterally, no crackles, no rales, no rhonchi and no wheezes Cardio Rate: regular rate Rhythm: regular rhythm Skin General skin exam: no rashes or lesions noted Neuro General: patient oriented x3 Gait exam (Neuro): Normal gait present Extrem General: Yes normal to inspection, Yes full ROM and No edema Psych Affect: normal affect Attitude: cooperative Insight: Good insight present (Psych) Judgement: Good judgement present (Psych) Coding Level of Care Code Est Pt Level 3 (39487) Diagnoses Obesity E66.9 Heavy menstrual bleeding N92.0 Hyperlipidemia E78.5 Anxiety F41.9 Depression F32.A Assessment & Plan Assessment & Plan (1) Obesity: Code(s): E66.9 - Obesity, unspecified Category: Medical Plan: Healthy diet and regular exercise is encouraged. (2) Heavy menstrual bleeding: Code(s): N92.0 - Excessive and frequent menstruation with regular cycle Category: Medical Plan: Patient was recently seen by [facility] had endometrial biopsy which confirmed stage I endometrial cancer. She is unsure of the details biopsy results but was referred to [facility] gynecology for additional imaging and workup by her forestry scientist. Plan to request the notes from [facility] and continue to follow through [facility]. She did have Mirena placed by her forestry scientist however she does continue to bleed. (3) Hyperlipidemia: Code(s): E78.5 - Hyperlipidemia, unspecified Category: Medical Plan: Avoid foods that are high in cholesterol such as red meat, fried foods, eggs and baked goods. Triglyceride goal of less than 150 and LDL goal of less than 130. Most recent blood work showing significantly elevated LDL in the 200 range. ASCVD risk calculated at 2.8% over the next 10 years statin is not recommended at this time based on risk calculator. However I did discuss persistently elevated LDL over 180 increases the risk for heart attack and stroke. Patient would like to try medication at this time plan to start on Atorvastatin 10mg and repeat labs in 3 months. (4) Anxiety: Comment: Follows with Estefany Parekh Q 3-4 months Code(s): F41.9 - Anxiety disorder, unspecified Category: Medical Plan: Follows with a psychiatrist and currently on venlafaxine feels her symptoms are well managed at this time. Declines counseling at this time (5) Depression: Comment: Follows with Estefany Parekh Q 3-4 months Code(s): F32.A - Depression, unspecified Category: Medical Plan: Follows with a psychiatrist and currently on venlafaxine feels her symptoms are well managed at this time. Declines counseling at this time Plan This note was constructed using voice recognition software. While every effort has been made to ensure accuracy and carton making machine operator, still areas may have been included sometimes these areas may affect the content or meeting of the given symptoms. Total time spent caring for the patient today was 20 minutes. This includes time spent before the visit reviewing the chart, time spent during the visit, and time spent after the visit and documentation. Patient was informed and verbally consented to the use of an ambient scribe for clinic note documentation during this visit. Orders: Orders Lipid Panel 3 Months E78.00 - Pure hypercholesterolemia, unspecified Medications: New atorvastatin 10 mg PO BEDTIME 90 tabs 1RF
[2024-08-26 08:38] VITALS: BP 130/76; PULSE 71; TEMP 36.3; O2SAT 96; BMI 34.5
== END 2024-08-26 09:09 | disposition home or self-care (01) ==
LOC: HO.HMCH 08:29
DX: E78.5 Hyperlipidemia, unspecified (principal); E66.9 Obesity, unspecified; Z68.34 Body mass index [BMI] 34.0-34.9, adult; N92.0 Excessive and frequent menstruation with regular cycle; F41.9 Anxiety disorder, unspecified; F32.A Depression, unspecified

== ENCOUNTER 2024-11-27 08:09 | Outpatient (REF) | payer BC, SELFPAY ==
--- NOTE | ~2024-11-27 | XR_ITS ---
EXAMINATION: XR CHEST CLINICAL INFORMATION: R22.2 - Localized swelling, mass and lump, trunk COMPARISON: None available. TECHNIQUE: 2 views of the chest were obtained. FINDINGS: Heart and mediastinal contours are unremarkable. Lungs are clear and well expanded. There is no pleural effusion. There is disc space narrowing and osteophytes in the midthoracic spine. XR/XR chest 2V IMPRESSION: No acute disease of the chest. Degenerative disc disease in the midthoracic spine. If there is a palpable mass, consider MRI without and with IV contrast for further characterization. Electronically signed by: Modesto Zamora MD 11/27/2024 10:45 AM EDT
== END 2024-11-27 08:10 | disposition home or self-care (01) ==
LOC: HO.XRAY 08:09
DX: E78.00 Pure hypercholesterolemia, unspecified (principal); F32.A Depression, unspecified; E66.811 Obesity, class 1; E66.09 Other obesity due to excess calories; Z68.31 Body mass index [BMI] 31.0-31.9, adult; R22.2 Localized swelling, mass and lump, trunk; C54.1 Malignant neoplasm of endometrium; R10.9 Unspecified abdominal pain; Z79.899 Other long term (current) drug therapy; Z90.710 Acquired absence of both cervix and uterus; Z90.722 Acquired absence of ovaries, bilateral; Z13.30 Encounter for screening examination for mental health and behavioral disorders, unspecified
CPT/HCPCS: 71046; 96127

== ENCOUNTER 2024-11-27 08:09 | Outpatient (AMB) | payer BC, SELFPAY ==
[2024-11-27 08:14] VITALS: BP 130/84; PULSE 78; O2SAT 99; BMI 31.1
--- NOTE | 2024-11-27 08:14 | A.OFFPC_ITS ---
Vital Signs 3 11/27/24 08:14 Height 5 ft 8 in Weight 204 lb 8 oz BMI 31.1 BP 130/84 Blood Pressure Location Lt brachial Position Sitting Pulse 78 Pulse Source Pulse Oximeter Pulse Oximetry (%) 99 Oxygen Delivery Method Room Air Intake Visit Reasons: f/u HLD Kiln Firer Required: No Accompanied by: Self / Same As Patient Allergies tetanus toxoid, adsorbed (TETANUS TOXOID, ADSORBED) Allergy (Intermediate, Verified 11/27/24 08:21) FEVER Tetanus Allergy (Unknown, Uncoded 11/27/24 08:21) Unknown Medication List - Last Reconciled 11/27/24 by Michelle Mi PA-C dextroamphetamine-amphetamine 20 mg 1 tab PO DAILY PRN trazodone 150 mg PO BEDTIME PRN venlafaxine ER 300 mg PO DAILY Tobacco use date assessed: 11/27/24 Dental Screening Dental Screen Date: 11/27/24 Did you have a dental visit in the last 12 months?: Yes Did you have a dental problem in the last 6 months where you did not have access to dental care?: No Was dental information given to patient?: Patient has dentist HPI f/u HLD 2 HPI0 Details 54-year-old female with past medical his tory of depression, anxiety, PTSD, hyperlipidemia last seen 08/2024 coming in for follow up. Her last visit she was started on atorvastatin 10 mg for hypercholesterolemia. Presenting with a follow-up for cancer treatment and management of associated symptoms. The patient has a history of cancer with lymph node involvement, requiring chemotherapy and immunotherapy. She underwent a full hysterectomy on October 07, including removal of ovaries and lymph nodes. Chemotherapy is being administered as a precaution due to lymph node involvement, with immunotherapy planned post-chemotherapy. The patient reports proteinuria, suspected to be due to dehydration, and experiences bubbles in urine. Musculoskeletal pain is noted, possibly related to scar tissue or muscle involvement post-surgery. She has a new, hard mass over the right clavicle. [facility] Surgical History H/O tubal ligation History of cholecystectomy Family History Mother Diabetes Other Mental health disorder Social History Household Members: Spouse Housing: House Alcohol intake: never Patient Tobacco Use Status: Never used Tobacco Years Smoked: e-Cigarette/Vaping Use: Never Used Second Hand Smoke Exposure: No Substance Use Type: Marijuana service: No Current occupational status: employed Cognitive needs: No Hearing needs: No Vision needs: No Questionnaire PHQ-9 Over the last 2 weeks, how often have you been bothered by any of the following problems? 1. Little interest or pleasure in doing things: not at all 2. Feeling down, depressed, or hopeless: not at all 3. Trouble falling or staying asleep, or sleeping too much: not at all 4. Feeling tired or having little energy: not at all 5. Poor appetite or overeating: not at all 6. Feeling bad about yourself - or that you are a failure or have let yourself or your family down: not at all 7. Trouble concentrating on things, such as reading the newspaper or watching television: not at all 8. Moving or speaking so slowly that other people could have noticed. Or the opposite - being so fidgety or restless that you have been moving around a lot more than usual: not at all 9. Thoughts that you would be better off or of hurting yourself in some way: not at all Total score: 0 Source: Developed by Drs. Abhi Marshall, Xiomara Perry, Damien Orourke and colleagues, with an educational tess from [employer]. Thrive Questionnaire Date Thrive assessed: 11/27/24 I am a: Patient What is your living situation today?: I have a steady place to live Within the past 12 months, did the food you bought not last and you didn't have the money to get more?: Never true Within the past 12 months, did you worry whether your food would run out before you got money to buy more?: Never true Do you have trouble paying for medicines?: No Do you have trouble getting transportation to medical appointments?: No Do you have trouble paying your heating and electricity bill?: No Do you have trouble taking care of your child, family member or friend?: No Do you have trouble with day-to-day activities such as bathing, preparing meals, shopping, managing finances, etc.?: No Are you currently unemployed and looking for a job?: No Are you interested in more education?: No Please select the resources that you would like help with: None Currently or been in a relationship where the following occur: No concerns reported THRIVE Score: 0 AUDIT C Alcohol Use Questionnaire (AUDIT-C) 1. How often do you have a drink containing alcohol?: Never 3. How often do you have six or more drinks on one occasion?: Never Total Score: 0 NOEL-7 AMB Questionnaire NOEL-7 Date NOEL - 7 assessed: 11/27/24 Feeling nervous, anxious, or on edge: 0 = Not at all Not being able to stop or control worryin = Not at all Worrying too much about different things: 0 = Not at all Trouble relaxin = Not at all Being so restless that it is hard to sit still: 0 = Not at all Becoming easily annoyed or irritable: 0 = Not at all Feeling afraid as if something awful might happen: 0 = Not at all Total NOEL-7 score (0-4 normal; 5-9 mild; 10-14 moderate; 15-21 severe): 0 Source: Developed by Drs. Abhi Marshall, Xiomara Perry, Damien Orourke and colleagues, with an educational tess from [employer]. Review of Systems Const Denies body aches, Denies chills, Denies fever(s), Denies headache(s) and Denies poor appetite Eyes Reports no additional complaints ENT Denies dysphagia, Denies dizziness, Denies headache(s) and Denies odynophagia Card Denies chest pain, Denies syncope, Denies edema, Denies irregular heart rhythm, Denies lightheadedness and Denies dyspnea Resp Denies cough and Denies dyspnea GI Denies abdominal pain, Denies constipation, Denies dysphagia, Denies diarrhea, Denies nausea, Denies odynophagia and Denies vomiting Reports no additional complaints Musc Reports no additional complaints and Denies abnormal gait Skin/Breast Reports system reviewed and no additional complaints, except as documented Neuro Denies abnormal gait, Denies dizziness, Denies syncope and Denies headache(s) Psych Reports no additional complaints Physical exam (Primary Care) Vital Signs: Oxygen Delivery Method Room Air 11/27/24 08:14 BMI result Body Mass Index 31.1 Tobacco/Smoking Status: Tobacco use Status Tobacco use date assessed 08/26/24 08/26/24 08:39 Patient Tobacco Use Status Never used Tobacco 08/26/24 08:39 e-Cigarette/Vaping Use Never Used 08/26/24 08:39 Thrive Assessment: Date of Thrive Assessment Date Thrive assessed 06/26/24 08/26/24 08:39 Currently or been in a relationship where the following occur: No concerns reported Const General: cooperative, healthy appearing, comfortable and no acute distress Orientation/consciousness: patient oriented x3 HENMT Head: Yes normocephalic Ears: hearing grossly normal bilaterally General nose exam: Normal external nose present Eyes General: appearance normal, both eyes and all related structures Conjunctivae: conjunctivae normal Neck Neck: Yes full ROM and Yes no lymphadenopathy Neck images: 2 1. large, hard, immobile mass with smooth edges Resp Effort & Inspection: normal respiratory effort Auscultation: clear to auscultation bilaterally, no crackles, no rales, no rhonchi and no wheezes Cardio Rate: regular rate Rhythm: regular rhythm GI Palpation (GI): Soft to palpation, not firm, nontender, no guarding, not rigid and no splenomegaly General: Yes no CVA tenderness Back/Spine/Pelvis Back: no CVA tenderness Skin General skin exam: no rashes or lesions noted Neuro General: patient oriented x3 Gait exam (Neuro): Normal gait present Extrem General: Yes normal to inspection, Yes full ROM and No edema Psych Affect: normal affect Attitude: cooperative Insight: Good insight present (Psych) Judgement: Good judgement present (Psych) Coding Level of Care Code Est Pt Level 4 (24712) Diagnoses Depression F32.A Hyperlipidemia E78.5 Class 1 obesity due to excess calories without serious comorbidity with body mass index (BMI) of 31.0 to 31.9 in adult E66.811; E66.09; Z68.31 Obesity type: due to excess calories Obesity classification: adult class 1 (BMI 30 - 34.9) Serious obesity comorbidity presence: without serious comorbidity Body mass index: BMI 31.0-31.9 Mass of chest R22.2 Endometrial cancer C54.1 Left flank pain R10.9 Assessment & Plan Assessment & Plan (1) Depression: Comment: Follows with Estefany Parekh Q 3-4 months Code(s): F32.A - Depression, unspecified Category: Medical Plan: Continue to follow with psychiatrist and continue on current medications. (2) Hyperlipidemia: Code(s): E78.5 - Hyperlipidemia, unspecified Category: Medical Plan: Avoid foods that are high in cholesterol such as red meat, fried foods, eggs and baked goods. Triglyceride goal of less than 150 and LDL goal of less than 130. Most recent blood work showing significantly elevated LDL in the 200 range. ASCVD risk calculated at 2.8% over the next 10 years statin is not recommended at this time based on risk calculator. However I did discuss persistently elevated LDL over 180 increases the risk for heart attack and stroke. She would like to hold off on the Atorvastatin while going through chemo treatments. (3) Obesity: Code(s): E66.9 - Obesity, unspecified Category: Medical Qualifiers: Obesity type: due to excess calories Obesity classification: adult class 1 (BMI 30 - 34.9) Serious obesity comorbidity presence: without serious comorbidity Body mass index: BMI 31.0-31.9 Qualified Code(s): E66.811 - Obesity, class 1; E66.09 - Other obesity due to excess calories; Z68.31 - Body mass index [BMI] 31.0-31.9, adult Plan: Healthy diet and regular exercise is encouraged. (4) Mass of chest: Code(s): R22.2 - Localized swelling, mass and lump, trunk Category: Medical Plan: Patient having a hard, immobile mass over the right clavicle. Plan to obtain CXR for further evaluation. Consider additional imaging if nothing is found. (5) Endometrial cancer: Comment: Oncology [facility] Dr. Fiore and Dr. Fajardo Code(s): C54.1 - Malignant neoplasm of endometrium Category: Medical Plan: Continue to [place] [facility] [place] for [place]. She recently underwent total hysterectomy with plans for 5 rounds of chemotherapy followed by immunotherapy. (6) Left flank pain: Code(s): R10.9 - Unspecified abdominal pain Category: Medical Plan: Patient having left flank pain that I suspect is muscular. On exam there is no tenderness to palpation and no visible rashes. UA was obtained in the office today which was negative for infection. I reviewed with the patient red flag symptoms and when to present for re-evaluation. At this time, lidocaine patches, heat and tylenol prn for pain. Plan The patient will continue with chemotherapy as a precautionary measure due to lymph node involvement, followed by immunotherapy. A chest x-ray is planned to evaluate the hard tissue and musculoskeletal pain, with an ultrasound to follow if necessary. The patient is advised to monitor for any changes in musculoskeletal pain and report if it becomes more consistent or severe. A follow-up urine test will be conducted to monitor protein levels. The patient is also encouraged to involve her daughter in discussions and decision-making processes regarding her care. This note was constructed using voice recognition software. While every effort has been made to ensure accuracy and child protection specialist, still areas may have been included sometimes these areas may affect the content or meeting of the given symptoms. Total time spent caring for the patient today was 20 minutes. This includes time spent before the visit reviewing the chart, time spent during the visit, and time spent after the visit and documentation. Patient was informed and verbally consented to the use of an ambient scribe for clinic note documentation during this visit. Orders: Orders 2 AMB Urinalysis Dipstick Today Z13.9 - Encounter for screening, unspecified XR chest 2V Today R22.2 - Localized swelling, mass and lump, trunk
--- OUTSIDE RECORDS SUMMARY | 2024-11-27 08:21 | XMS_ITS | Data Portability ---
Author Organization [facility] [id number] Address [address] [place] [address] Assessment No assessment recorded. Plan of Treatment Reminders Order Date Submit Date Provider Last Modified By Organization Details Last Modified Time Details Appointments None recorded. Lab None recorded. Referral None recorded. Procedures None recorded. Surgeries None recorded. Imaging None recorded. Medication Orders prednisone 20 mg tablet 2022 023 [id number], [address] [facility], [place], [address], 12:21:04 Patient TargetsNo targets recorded. Patient Instructions Encounter Date Encounter Id Patient Instructions Last Modified By Organization Details Last Modified Time 08/05/2022 [id number] Sciatica is an irritation of one of [...] your doctor if you can take an cyrb-xqk-[id number] medicine. Use heat or ice to relieve [...] Details Recorded Time Attention deficit hyperactivity disorder 533110067 Active 2022 Yessica Chele null, PA - [facility] 11:17:38 Depressive disorder 81897860 Active 2022 Yessica Luverne null, PA - [facility] 11:17:52 Posttraumatic stress disorder 28035471 Active 2022 Yessica Chele null, PA - [...] Name and Address Organization Details Recorded Time 010790 tetanus and diphtheri a toxoids Not available other Not available low 08/05/2022 [id number] UNK Yessica Luverne null, PA - [facility] 11:16:49 Medications [...] height Body mass index (BMI) Body weight Body temperature Respiratory rate Heart rate Oxygen saturation Oxygen saturation in Arterial blood by Pulse oximetry Systolic blood pressure Diastolic blood pressure Provider Name and Address Organization Details Last Updated DateTime 175.26 cm 36.9 kg/m2 984357. 09 g 98.2 [degF] 20 /min 92 /min 96 % 96 % 138 mm[Hg] 90 mm[Hg] Yessica Elaine PA [employer] 11:19:55 Social History Question Answer Notes LastModified by Kopi Details LastModified Time Tobacco Smoking Status Never Smoker Yessica sheppard [facility] 08/05/2022 11:18:05 Have You Had Direct Contact, Or Contact During Intimacy, With Monkeypox Rash, Scabs, Or Body Fluids From A Person With Monkeypox? No Information not available 08/05/2022 Have You Recently Traveled Abroad? No Information not available 08/05/2022 Sex: Unknown Functional Status Question Answer Note LastModified by Kopi Details LastModified Time Do you use any illicit or recreational drugs? No Information not available 08/05/2022 Do you or have you ever used any other forms of tobacco or nicotine? No Information not available 08/05/2022 What is your level of alcohol consumption? None Information not available 08/05/2022 Mental Status None recorded. Family History Relationship [...] SNOMED-CT Code Diagnosis ICD10 Code Diagnosis Note [id number] [facility] [address] [place] [address] 08/09/2020 10:55:55 08/09/2020 12:39:57 [id number] [address] [place] [address] 12/30/2018 14:16:40 12/30/2018 14:59:09 [id number] [facility] [address] [facility] [place] [address] 02/07/2017 18:08:33 02/07/2017 18:41:29 [id number] [address] [place] [address] 07/31/2015 14:18:05 07/31/2015 14:56:05 [id number] Renzo Cordero GENERAL CAR[employer] CLERK [address] [place] [address] 08/05/2022 10:52:54 08/05/2022 12:22:36 Low back pain co-occurrent with neuralgia of left sciatic nerve [id number] M54.42 Health Concerns Section Related Observation LastModified by Organization Detai ls LastModified Time None Recorded Concern Status LastModified by Organization Details LastModified Time None Recorded Advance Directives Directive None Recorded Payers Insurance Date Sequence Insurance Name Policy Number Policy Macedo Covered Member ID Macedo Member ID Guarantor Name 08/05/2022 1 COLLETTE-MARYURI (PPO) [id number] Hitesh Almodovar [id number] Trang Almodovar Notes Date Note Type Note [...] Work Related:no Working:no Renzo Cordero NP [address] [place], [id number], [place] - [facility] 08/06/2022 07:46:38 OBGyn Episode No OBEpisode recorded.
== END 2024-11-27 09:50 | disposition home or self-care (01) ==
LOC: HO.HMCH 08:10
DX: E78.5 Hyperlipidemia, unspecified (principal); C54.1 Malignant neoplasm of endometrium; E66.811 Obesity, class 1; Z68.31 Body mass index [BMI] 31.0-31.9, adult; F32.A Depression, unspecified; R22.2 Localized swelling, mass and lump, trunk; R10.9 Unspecified abdominal pain

== ENCOUNTER → 2024-11-27 10:24 | Outpatient (BNV) | payer BC, SELFPAY | PROVIDERS: Visit Provider Radiology Diagnostic Radiology | DX: M51.34 Other intervertebral disc degeneration, thoracic region (principal) | CPT/HCPCS: 71046 ==

== ENCOUNTER → 2024-12-01 08:46 | Outpatient (BNV) | payer BC, SELFPAY | DX: Z13.9 Encounter for screening, unspecified (principal) | CPT/HCPCS: 81002 ==